=== PATIENT | male | born 1970 | race Caucasian/White ===

== ENCOUNTER 2018-11-29 09:30 | Day surgery (SDC) | payer BC ==
[~2018-11-29 09:30] MED LIST: Lactated Ringers 1,000 ML IV SCH; Propofol 200 MG/20 ML SDV ONE; Sodium Chloride 0.9% 10 ML Syringe FLUSH PRN
[2018-11-29] MEDS ORDERED: Propofol 200 MG/20 ML SDV IV ONE (09:31)
[2018-11-29] MEDS ORDERED: Propofol 200 MG/20 ML SDV ONE ×2 (10:15→10:30)
--- NOTE | 2018-11-29 10:45 | PCM.PN ---
- General Info Date of Service: 11/29/18 - Review of Systems Systems Review Comment:: 48-year-old male referred for colonoscopy. This is his first colonoscopy. He has noticed some hematochezia. There is also a family history of colon polyps in his father and colon cancer in his grandmother. The patient is medically stable to proceed today. His recent history and physical is reviewed and no significant changes are noted. I discussed the proposed colonoscopy with the patient. Risks such as but not limited to bleeding and GI injury reviewed. He agrees to proceed. - Patient Data Vitals - Most Recent: Last Vital Signs Temp 97.1 F 11/29/18 09:30 Pulse 64 11/29/18 09:30 Resp 16 11/29/18 09:30 BP 138/91 H 11/29/18 09:30 Pulse Ox 97 11/29/18 09:30 Med Orders - Current: Current Medications Lactated Ringer's (Ringers, Lactated) 1,000 mls @ 50 mls/hr IV ASDIRECTED SID Sodium Chloride (Saline Flush) 10 ml FLUSH Q8HR PRN PRN Reason: keep vein open Discontinued Medications Propofol (Diprivan 20 Ml) Confirm Administered Dose 400 mg .ROUTE .STK-MED ONE Stop: 11/29/18 09:23 - Problem List Review Problem List Initiated/Reviewed/Updated: Yes - My Orders Last 24 Hours: My Active Orders 11/28/18 15:14 Resuscitation Status Routine 11/29/18 09:30 Patient to Empty Bladder [RC] ASDIRECTED Peripheral IV Care [RC] . DIRECTED Vital Signs [RC] PER UNIT ROUTINE Lactated Ringers [Ringers, Lactated] 1,000 ml IV ASDIRECTED Sodium Chloride 0.9% [Saline Flush] 10 ml FLUSH Q8HR PRN Peripheral IV Insertion Adult [OM.PC] Routine 11/29/18 10:30 Verify Patient Consent Obtain [RC] ASDIRECTED 11/29/18 Breakfast Nothing Per Oral Diet [DIET] - Assessment Assessment:: Hematochezia Family history of colon cancer and colon polyps - Plan Plan:: Colonoscopy
--- NOTE | 2018-11-29 11:51 | PCM.OPNOTE ---
- General Post-Op/Procedure Note Date of Surgery/Procedure: 11/29/18 Operative Procedure(s): Colonoscopy with Polypectomy Findings: Multiple Colon Polyps Pre Op Diagnosis: Hematochezia Post-Op Diagnosis: Colon Polyps Anesthesia Technique: MAC Primary Surgeon: Dinesh Dan Pathology: Multiple colon polyps EBL in mLs: 0 Complications: None Condition: Good
--- NOTE | 2018-11-29 18:59 | OR ---
DATE OF SURGERY: 11/29/2018 SURGEON: Dinesh Dan MD PREOPERATIVE DIAGNOSIS: 1. Hematochezia. 2. Family history of colon cancer and polyps. POSTOPERATIVE DIAGNOSIS: Multiple colon polyps. OPERATION PERFORMED: Colonoscopy with polypectomy. INDICATIONS FOR SURGERY: This 48-year-old male presents today for his initial colonoscopy. He has had some recent episodes of visible hematochezia and also notes that he has a family history of polyps in his father and colon cancer in a grandmother. FINDINGS: Multiple polyps are noted on today's exam. Polyps are removed from 9 different areas in the colon, polyps range in size from 7 mm to 3 cm. The largest polyps were large pedunculated polyps noted in the sigmoid colon at the 25 cm level and the splenic flexure. These were 2.5 to 3 cm in size each. Other polyps were located in the rectum at the 3, 5, and 8 cm level in the transverse colon as well as the mid transverse colon and also in the ascending colon and the hepatic flexure. Other than the polyps, the colon appeared normal. PROCEDURE IN DETAIL: The patient was taken to the operating room. He was given intravenous sedation, and with him in the left lateral decubitus position, digital rectal exam was performed showing no rectal masses. The Olympus colonoscope was inserted into the rectum, and a retroflexed examination of the rectal canal was performed. The scope was then carefully advanced under direct visualization throughout the entire length of the colon until the cecum was reached. The cecal acquisition was confirmed by noting normal internal cecal anatomy including the appendiceal orifice and ileocecal valve, and the light was also noted to transilluminate the abdominal wall in the right lower quadrant. The ileocecal valve was cannulated, and the terminal ileum was also examined and appeared normal. After examining the cecum, the scope was slowly withdrawn sequentially re-examining the colonic segments. During insertion and withdrawal of the scope, multiple polyps were identified. As these were encountered, each polyp was removed with a cautery snare. Polyps were removed from 9 different areas, and at least 2 of these areas had multiple polyps at these locations. At each polypectomy site, there was no indication of any complication. The polyp appeared to be completely removed at each location. After the exam had been completed and all visible polyps removed, the scope was removed, and the patient was then taken from the operating room in satisfactory condition. ESTIMATED BLOOD LOSS: Zero. COMPLICATIONS: None. PROGNOSIS: Good. /[id number]/MODL
== END 2018-11-29 13:20 | disposition home or self-care (01) ==
LOC: KA.SDS 09:30
PROVIDERS: ATTEND Surgery
DX: D12.2 Benign neoplasm of ascending colon (principal); D12.3 Benign neoplasm of transverse colon; D12.5 Benign neoplasm of sigmoid colon; D12.8 Benign neoplasm of rectum; F17.220 Nicotine dependence, chewing tobacco, uncomplicated; L30.9 Dermatitis, unspecified; Z83.71 Family history of colonic polyps
CPT/HCPCS: J2704; J7120

== ENCOUNTER 2019-10-31 11:30 | Day surgery (SDC) | payer BC ==
[~2019-10-31 11:30] MED LIST changes: -Lactated Ringers 1,000 ML IV SCH; -Propofol 200 MG/20 ML SDV ONE
[2019-10-31] MEDS ORDERED: Propofol 200 MG/20 ML SDV IV ONE (11:31)
[2019-10-31] MEDS ORDERED: Midazolam 1 MG/ML 2 ML SDV IV ONE (11:31)
[2019-10-31] MEDS ORDERED: Propofol 200 MG/20 ML SDV ONE (11:46)
[2019-10-31] MEDS: Lactated Ringers 1,000 ML IV SCH (12:13)
--- NOTE | 2019-10-31 13:35 | PCM.PN ---
- General Info Date of Service: 10/31/19 - Review of Systems Systems Review Comment:: 49-year-old male with history of multiple precancerous colon polyps removed 1 year ago here for surveillance colonoscopy. He is medically stable to proceed. His recent physical is reviewed and no significant changes are noted. He does note that he had a single episode of hematochezia about 3 weeks ago. I have discussed the proposed colonoscopy with the patient. He understands indications and risks such as but not limited to bleeding and colon injury and he agrees to proceed. - Patient Data Vitals - Most Recent: Last Vital Signs Temp 95.9 F L 10/31/19 11:53 Pulse 55 L 10/31/19 11:53 Resp 18 10/31/19 11:53 BP 119/68 10/31/19 11:53 Pulse Ox 95 10/31/19 11:53 Weight - Most Recent: 92.986 kg Med Orders - Current: Current Medications Lactated Ringer's (Ringers, Lactated) 1,000 mls @ 50 mls/hr IV ASDIRECTED [facility] Last Admin: 10/31/19 12:13 Dose: 50 mls/hr Documented by: Sodium Chloride (Saline Flush) 10 ml FLUSH Q8HR PRN PRN Reason: keep vein open Discontinued Medications Propofol (Diprivan 20 Ml) Confirm Administered Dose 400 mg .ROUTE .STK-MED ONE Stop: 10/31/19 11:47 Sepsis Event Note - Focused Exam Vital Signs: Vital Signs Temp Pulse Resp BP Pulse Ox 10/31/19 11:53 95.9 F L 55 L 18 119/68 95 Date Exam was Performed: 10/31/19 Time Exam was Performed: 13:33 - Problem List Review Problem List Initiated/Reviewed/Updated: Yes - My Orders Last 24 Hours: My Active Orders 10/30/19 13:59 Resuscitation Status Routine 10/31/19 Breakfast Nothing Per Oral Diet [DIET] 10/31/19 11:30 Peripheral IV Care [RC] . DIRECTED Lactated Ringers [Ringers, Lactated] 1,000 ml IV ASDIRECTED Sodium Chloride 0.9% [Saline Flush] 10 ml FLUSH Q8HR PRN Peripheral IV Insertion Adult [OM.PC] Routine 10/31/19 12:00 Patient to Empty Bladder [RC] ASDIRECTED 07/21/20 12:30 Verify Patient Consent Obtain [RC] ASDIRECTED - Assessment Assessment:: History of colon polyps Hematochezia - Plan Plan:: Colonoscopy
--- NOTE | 2019-10-31 14:15 | PCM.OPNOTE ---
- General Post-Op/Procedure Note Date of Surgery/Procedure: 10/31/19 Operative Procedure(s): Colonoscopy with Polypectomy Findings: Multiple colon polyps Colon otherwise normal Pre Op Diagnosis: History of colon polyps Post-Op Diagnosis: Colon Polyps Anesthesia Technique: MAC Primary Surgeon: Dinesh Dan Pathology: Colon polyps EBL in mLs: 0 Complications: None Condition: Good
--- NOTE | 2019-10-31 15:09 | OR ---
DATE OF SURGERY: 10/31/2019 SURGEON: Dinesh Dan MD PREOPERATIVE DIAGNOSIS: History of colon polyps. POSTOPERATIVE DIAGNOSIS: Colon polyps. OPERATION PERFORMED: Colonoscopy with polypectomy. INDICATIONS FOR SURGERY: This 49-year-old male has a known history of multiple colon polyps having been removed during colonoscopy 1 year ago. He comes today for surveillance colonoscopy. FINDINGS: Polyps are noted in four locations in the colon today. There is a 1 cm sessile irregular polyp in the sigmoid colon 30 cm from the anal verge. There is a 1 cm semi-pedunculated polyp at the splenic flexure. There were 5 mm polyps noted in the proximal transverse colon and in the distal transverse colon. The remainder of the colon appears normal. DESCRIPTION OF PROCEDURE: The patient was taken to the operating room. He was given intravenous sedation and with him in the left lateral decubitus position, digital rectal exam was performed showing no rectal masses. The Olympus colonoscope was inserted into the rectum. Retroflexed examination of the rectal canal is performed. The scope was then carefully advanced under direct visualization through the entire length of the colon until the cecum is reached. Cecal acquisition is confirmed by noting the normal internal cecal anatomy including the appendiceal orifice and the ileocecal valve. The light is also noted to transilluminate the abdominal wall in the right lower quadrant. After examining the cecum, the scope was slowly withdrawn sequentially re-examining the colonic segments. During insertion and withdrawal of the scope, the above- described polyps are each identified and in turn as they are identified, they are each removed with a cautery snare. Each polyp was also retrieved. There was no sign of complication of the polypectomy sites. After the colon and rectum had been fully examined, the scope was removed and the patient was taken from the operating room in satisfactory condition. ESTIMATED BLOOD LOSS: Zero. COMPLICATIONS: None. PROGNOSIS: Good. /[id number]/MODL MTDD
== END 2019-10-31 15:58 | disposition home or self-care (01) ==
LOC: KA.SDS 11:30
PROVIDERS: ATTEND Surgery
DX: Z12.11 Encounter for screening for malignant neoplasm of colon (principal); D12.3 Benign neoplasm of transverse colon; D12.5 Benign neoplasm of sigmoid colon; L65.9 Nonscarring hair loss, unspecified; F17.210 Nicotine dependence, cigarettes, uncomplicated; E78.00 Pure hypercholesterolemia, unspecified; Z86.010 Personal history of colon polyps; Z98.890 Other specified postprocedural states
CPT/HCPCS: 00811; J2250; J2704; J7120

== ENCOUNTER 2020-11-12 10:19 | Day surgery (SDC) | payer BC ==
[~2020-11-12 10:19] MED LIST changes: +Lactated Ringers 1,000 ML IV SCH
[2020-11-12] MEDS ORDERED: Propofol 200 MG/20 ML SDV ONE (10:39)
[2020-11-12] MEDS ORDERED: Midazolam 1 MG/ML 2 ML SDV ONE (10:39)
--- NOTE | 2020-11-12 11:02 | PCM.PN ---
- General Info Date of Service: 11/12/20 - Review of Systems Systems Review Comment:: 50-year-old male with history of multiple polyps here for surveillance colonoscopy. He is medically stable to proceed today. His recent history and physical is reviewed and no significant changes are noted. I have discussed the proposed colonoscopy with the patient. He understands indications and risks and agrees to proceed. - Patient Data Vitals - Most Recent: Last Vital Signs Temp 97.7 F 11/12/20 10:33 Pulse 73 11/12/20 10:33 Resp 16 11/12/20 10:33 BP 126/92 H 11/12/20 10:33 Pulse Ox 95 11/12/20 10:33 Weight - Most Recent: 99.79 kg Med Orders - Current: Current Medications Lactated Ringer's (Ringers, Lactated) 1,000 mls @ 50 mls/hr IV ASDIRECTED SID Last Admin: 11/12/20 10:56 Dose: 50 mls/hr Documented by: Sodium Chloride (Sodium Chloride 0.9% 10 Ml Syringe) 10 ml FLUSH Q8HR PRN PRN Reason: keep vein open Last Admin: 11/12/20 10:56 Dose: 10 ml Documented by: Discontinued Medications Midazolam HCl (Midazolam 1 Mg/Ml 2 Ml Sdv) Confirm Administered Dose 2 mg .ROUTE .STK-MED ONE Stop: 11/12/20 10:40 Propofol (Propofol 200 Mg/20 Ml Sdv) Confirm Administered Dose 400 mg .ROUTE .STK-MED ONE Stop: 11/12/20 10:40 Sepsis Event Note - Focused Exam Vital Signs: Vital Signs Temp Pulse Resp BP Pulse Ox 11/12/20 10:33 97.7 F 73 16 126/92 H 95 - Problem List Review Problem List Initiated/Reviewed/Updated: Yes - My Orders Last 24 Hours: My Active Orders 11/11/20 13:44 Resuscitation Status Routine 11/12/20 Breakfast Nothing Per Oral Diet [DIET] 11/12/20 10:15 Patient to Empty Bladder [RC] ASDIRECTED Peripheral IV Care [RC] . DIRECTED Lactated Ringers [Ringers, Lactated] 1,000 ml IV ASDIRECTED Sodium Chloride 0.9% [Saline Flush] 10 ml FLUSH Q8HR PRN Peripheral IV Insertion Adult [OM.PC] Routine 11/12/20 11:15 Verify Patient Consent Obtain [RC] ASDIRECTED - Assessment Assessment:: History of colon polyps - Plan Plan:: Colonoscopy
--- NOTE | 2020-11-12 11:33 | PCM.OPNOTE ---
- General Post-Op/Procedure Note Date of Surgery/Procedure: 11/12/20 Operative Procedure(s): Colonoscopy Findings: Normal appearing colon with no polyps seen Pre Op Diagnosis: History of colon polyps Post-Op Diagnosis: Normal colon Anesthesia Technique: MAC Primary Surgeon: Dinesh Dan Pathology: none EBL in mLs: 0 Complications: None Condition: Good
--- NOTE | 2020-11-12 18:08 | OR ---
DATE OF SURGERY: 11/12/2020 SURGEON: Dinesh Dan MD PREOPERATIVE DIAGNOSIS: History of colon polyps. POSTOPERATIVE DIAGNOSIS: Normal colon. OPERATION PERFORMED: Colonoscopy. INDICATIONS FOR SURGERY: This 50-year-old male has a known history of multiple colon polyps and comes today for surveillance colonoscopy. FINDINGS: No polyps were seen on today's exam. The patient's colon appears normal. DESCRIPTION OF PROCEDURE: The patient was taken to the operating room. He was given intravenous sedation and with him in the left lateral decubitus position, digital rectal exam was performed showing no rectal masses. The Olympus colonoscope was inserted into the rectum. Retroflexed examination of the rectal canal is performed. The scope was then carefully advanced under direct visualization through the entire length of the colon until the cecum is reached. Cecal acquisition is confirmed by noting the normal internal cecal anatomy including the appendiceal orifice and the ileocecal valve. After examining the cecum, the scope was slowly withdrawn sequentially re-examining the colonic segments until the entire colon and rectum had been fully examined. The scope was then removed and the patient was taken from the operating room in satisfactory condition. ESTIMATED BLOOD LOSS: Zero. COMPLICATIONS: None. PROGNOSIS: Good. /[id number]/MODL
== END 2020-11-12 12:21 | disposition home or self-care (01) ==
LOC: KA.SDS 10:19
PROVIDERS: ATTEND Surgery
DX: Z12.11 Encounter for screening for malignant neoplasm of colon (principal); F17.210 Nicotine dependence, cigarettes, uncomplicated; Z79.899 Other long term (current) drug therapy; Z86.010 Personal history of colon polyps; Z98.890 Other specified postprocedural states
CPT/HCPCS: 45378; J2250; J2704; J7120; 00812

== ENCOUNTER 2022-04-28 10:51 | Day surgery (SDC) | payer BC ==
[2022-04-28] MEDS ORDERED: Sodium Chloride 0.9% 10 ML Syringe FLUSH SCH (11:00)
[2022-04-28] MEDS: Lactated Ringers 1,000 ML IV SCH (11:20)
[2022-04-28] MEDS ORDERED: Midazolam 1 MG/ML 2 ML SDV ONE (12:24)
[2022-04-28] MEDS ORDERED: Propofol 200 MG/20 ML SDV ONE (12:24)
== END 2022-04-28 14:10 | disposition home or self-care (01) ==
LOC: KA.SDS 10:51
PROVIDERS: ATTEND Surgery
DX: D12.3 Benign neoplasm of transverse colon (principal); K64.8 Other hemorrhoids; K92.1 Melena; Z86.010 Personal history of colon polyps; Z79.899 Other long term (current) drug therapy; Z98.890 Other specified postprocedural states
CPT/HCPCS: 00811; J2250; J2704; J7120

== ENCOUNTER 2023-07-06 07:57 | Day surgery (SDC) | payer BC ==
[2023-07-06] MEDS ORDERED: Sodium Chloride 0.9% 10 ML Syringe FLUSH PRN (08:00)
[2023-07-06] MEDS: Lactated Ringers 1,000 ML IV SCH (08:15)
[2023-07-06] MEDS ORDERED: Propofol 200 MG/20 ML SDV ONE (08:51)
[2023-07-06] MEDS ORDERED: Midazolam 1 MG/ML 2 ML SDV ONE (08:51)
[2023-07-06] MEDS ORDERED: Lidocaine 2% 5 ML SDV ONE (08:52)
[2023-07-06] MEDS ORDERED: Glycopyrrolate 0.2 MG/ML SDV ONE (08:52)
== END 2023-07-06 11:10 | disposition home or self-care (01) ==
LOC: KA.SDS 07:57
PROVIDERS: ATTEND Surgery
DX: K29.50 Unspecified chronic gastritis without bleeding (principal); E78.00 Pure hypercholesterolemia, unspecified; G89.29 Other chronic pain; Z79.899 Other long term (current) drug therapy
CPT/HCPCS: 00731; J2250; J2704; J3490; J7120

== ENCOUNTER 2024-07-18 08:08 | Day surgery (SDC) | payer BC ==
[2024-07-18] MEDS ORDERED: Sodium Chloride 0.9% 10 ML Syringe FLUSH PRN (08:15)
[2024-07-18] MEDS: Lactated Ringers 1,000 ML IV SCH (08:23)
[2024-07-18] MEDS ORDERED: Propofol 200 MG/20 ML SDV ONE (09:20)
[2024-07-18] MEDS ORDERED: Midazolam 1 MG/ML 2 ML SDV ONE (09:20)
== END 2024-07-18 10:55 | disposition home or self-care (01) ==
LOC: KA.SDS 08:08
PROVIDERS: ATTEND Surgery
DX: Z12.11 Encounter for screening for malignant neoplasm of colon (principal); E78.00 Pure hypercholesterolemia, unspecified; N52.9 Male erectile dysfunction, unspecified; Z85.038 Personal history of other malignant neoplasm of large intestine; Z86.0100 Personal history of colon polyps, unspecified
CPT/HCPCS: 00811; 45380; J2250; J2704; J7120